=== PATIENT | female | born 1970 | race Caucasian/White ===

== ENCOUNTER 2016-12-20 22:32 | Emergency (ER) | payer OTHER ==
[~2016-12-20] VITALS: Ht 170.2 cm; Wt 100.0 kg
[~2016-12-20 22:32] MED LIST: BENTYL 20MG20 MG/TAB PO; BENTYL20 MG PO; COREG 6.256.25 MG/TA PO; EPA1000 MG PO; FENOFIBRATE160 MG PO; HEALTH CARE AM325 M1 PO; NITROGLYCERIN0.4 MG SL; NITROQUICK0.4 MG SL; RANITIDINE75 MG PO; SERTRALINE50 MG PO; SIMVASTATIN40 MG PO; STOOL SOFTENER1 TAB PO; STOOL SOFTENER100 M1 PO; TOPCARE ASPIRI325 MG PO; XANAX0.25 MG PO; ZOCOR 40MG40 MG PO
[2016-12-20 22:36] VITALS: TEMP 97.9
[2016-12-20 23:14] LABS: BASO % 0.4 % (0.0-2.0); EOS # 0.2 (0.0-0.7); EOS % 2.8 % (0-4.0); GRAN # 3.8 (1.4-6.5); GRAN % 57.1 % (42.2-75.2); HEMOGLOBIN 13.8 g/dl (12.5-16.0); LYMPH # 2.1 (1.2-3.4); LYMPH % 31.7 % (20.0-51.0); MEAN CELL VOLUME 88 fl (80.0-100.0); MEAN CORPUSCULAR HEMOGLOBIN 32 pg (27.0-31.0); MEAN CORPUSCULAR HGB CONC 36 g/dl (33.0-37.0); MEAN PLATELET VOLUME 10.3 fl (7.4-10.4); MONO # 0.5 (0.1-0.6); MONO % 7.9 % (1.7-9.3); PLATELET COUNT 146 K/mm3 (130-400); RED BLOOD COUNT 4.32 M/mm3 (4.10-5.30); WHITE BLOOD COUNT 6.7 K/mm3 (4.8-10.8)
[2016-12-20 23:38] LABS: ERYTHROCYTE SEDIMENTATION RATE 14 mm/hr (0-20)
[2016-12-20 23:42] LABS: ADJUSTED CALCIUM 9.3 mg/dL (8.4-10.2); ALANINE AMINOTRANSFERASE 27 U/L (9-52); ALBUMIN 4.2 gm/dL (3.5-5.0); ALKALINE PHOSPHATASE 63 U/L (50-136); ANION GAP 10 mmol/L (7-16); BILIRUBIN,TOTAL 0.8 mg/dL (0.0-1.0); BLOOD UREA NITROGEN 10 mg/dL (7-17); CALCIUM 9.5 mg/dL (8.4-10.2); CARBON DIOXIDE 26 mmol/L (22-30); CHLORIDE 102 mmol/L (98-107); CREATININE, serum 1.08 mg/dL (0.52-1.25); GLUCOSE 92 mg/dL (74-106); POTASSIUM 4.1 mmol/L (3.4-5.0); SODIUM 138 mmol/L (137-145); TOTAL PROTEIN 7.9 gm/dL (6.4-8.2)
[2016-12-20 23:44] LABS: C-REACTIVE PROTEIN < 0.5 mg/dL (0.0-0.9)
[2016-12-20 23:52] LABS: TROPONIN-I < 0.012 ng/mL (0.000-0.034)
[2016-12-21] MEDS ORDERED: PRINIVIL20 MG PO (00:42)
[2016-12-21 00:57] VITALS: BP 125/65; PULSE 56
== END 2016-12-21 00:59 | disposition home or self-care (01) ==
LOC: COL.ER 22:32
PROVIDERS: Emergency Medicine
DX: I10 Essential (primary) hypertension (principal); R51 Headache; R93.0 Abnormal findings on diagnostic imaging of skull and head, not elsewhere classified; F17.210 Nicotine dependence, cigarettes, uncomplicated; I25.10 Atherosclerotic heart disease of native coronary artery without angina pectoris

== ENCOUNTER 2017-02-04 21:18 | Emergency (ER) | payer OTHER ==
[~2017-02-04] VITALS: Ht 172.7 cm; Wt 100.0 kg
[~2017-02-04 21:18] MED LIST changes: +PRINIVIL20 MG PO
[2017-02-04 21:19] VITALS: TEMP 97.9
[2017-02-04] MEDS ORDERED: COREG 25MG25 MG/TAB PO (21:33)
[2017-02-04] MEDS ORDERED: PLAVIX 75MG TAB75 MG PO (21:33)
[2017-02-04 22:03] LABS: BASO % 0.7 % (0.0-2.0); EOS # 0.1 (0.0-0.7); EOS % 2.3 % (0-4.0); GRAN % 53.3 % (42.2-75.2); HEMATOCRIT 39.7 % (37.0-47.0); HEMOGLOBIN 14.5 g/dl (12.5-16.0); LYMPH # 1.9 (1.2-3.4); LYMPH % 33.7 % (20.0-51.0); MEAN CELL VOLUME 88 fl (80.0-100.0); MEAN CORPUSCULAR HEMOGLOBIN 32 pg (27.0-31.0); MEAN CORPUSCULAR HGB CONC 37 g/dl (33.0-37.0); MEAN PLATELET VOLUME 10.6 fl (7.4-10.4); MONO # 0.6 (0.1-0.6); MONO % 9.8 % (1.7-9.3); PLATELET COUNT 153 K/mm3 (130-400); RED BLOOD COUNT 4.53 M/mm3 (4.10-5.30); WHITE BLOOD COUNT 5.6 K/mm3 (4.8-10.8)
[2017-02-04 22:13] LABS: INR 1.1 (0.8-3.0); PROTHROMBIN TIME 12.7 SECONDS (9.7-12.8)
[2017-02-04 22:15] LABS: PARTIAL THROMBOPLASTIN TIME 28.8 SECONDS (26.0-37.0)
[2017-02-04 22:25] LABS: ADJUSTED CALCIUM 8.9 mg/dL (8.4-10.2); ALANINE AMINOTRANSFERASE 32 U/L (9-52); ALBUMIN 4.6 gm/dL (3.5-5.0); ALKALINE PHOSPHATASE 83 U/L (50-136); ANION GAP 14 mmol/L (7-16); BILIRUBIN,TOTAL 0.9 mg/dL (0.0-1.0); BLOOD UREA NITROGEN 10 mg/dL (7-17); CALCIUM 9.4 mg/dL (8.4-10.2); CARBON DIOXIDE 25 mmol/L (22-30); CHLORIDE 102 mmol/L (98-107); CREATININE, serum 0.88 mg/dL (0.52-1.25); GLUCOSE 96 mg/dL (74-106); POTASSIUM 3.5 mmol/L (3.4-5.0); SODIUM 140 mmol/L (137-145); TOTAL PROTEIN 8.2 gm/dL (6.4-8.2)
[2017-02-04 22:41] LABS: TROPONIN-I < 0.012 ng/mL (0.000-0.034)
[2017-02-05 01:29] VITALS: BP 140/80; PULSE 76
== END 2017-02-05 01:29 | disposition home or self-care (01) ==
LOC: COL.ER 21:18
PROVIDERS: Family Medicine
DX: R07.9 Chest pain, unspecified (principal); I10 Essential (primary) hypertension; E78.5 Hyperlipidemia, unspecified
CPT/HCPCS: J3010

== ENCOUNTER 2017-04-18 08:01 | Day surgery (SDC) | payer OTHER ==
[~2017-04-18] VITALS: Ht 172.7 cm; Wt 89.6 kg
[~2017-04-18 08:01] MED LIST changes: +COREG 25MG25 MG/TAB PO; +PLAVIX 75MG TAB75 MG PO
[2017-04-18] MEDS ORDERED: COREG 6.256.25 MG/TA PO (08:25)
[2017-04-18] MEDS ORDERED: ZESTRIL 20MG TA20 MG PO (08:25)
[2017-04-18 08:28] VITALS: BP 111/67; PULSE 64; TEMP 97.9
[2017-04-18 10:05] VITALS: BP 112/80; PULSE 66; TEMP 97.9
[2017-04-18 10:20] VITALS: BP 113/63; PULSE 59; TEMP 97.8
[2017-04-18 10:35] VITALS: BP 107/67; PULSE 52; TEMP 97.7
[2017-04-18] MEDS ORDERED: NITROSTAT0.4 MG/TAB SL (11:02)
[2017-04-18] MEDS ORDERED: PLAVIX 75MG TAB75 MG PO (11:02)
[2017-04-18] MEDS ORDERED: ZOCOR 40MG40 MG PO (11:02)
== END 2017-04-18 11:07 | disposition home or self-care (01) ==
LOC: SDCO 08:01
DX: K29.50 Unspecified chronic gastritis without bleeding (principal); Z86.010 Personal history of colon polyps; K64.0 First degree hemorrhoids; K44.9 Diaphragmatic hernia without obstruction or gangrene; R63.4 Abnormal weight loss; R07.89 Other chest pain; K31.84 Gastroparesis; R68.81 Early satiety; R11.0 Nausea; K58.9 Irritable bowel syndrome, unspecified; I25.10 Atherosclerotic heart disease of native coronary artery without angina pectoris; Z95.5 Presence of coronary angioplasty implant and graft; K21.9 Gastro-esophageal reflux disease without esophagitis; I25.2 Old myocardial infarction; I51.9 Heart disease, unspecified; E78.00 Pure hypercholesterolemia, unspecified; F17.210 Nicotine dependence, cigarettes, uncomplicated; Z79.02 Long term (current) use of antithrombotics/antiplatelets
CPT/HCPCS: OP; J2250; J2405; J3010; J7030

== ENCOUNTER → 2017-07-19 | Outpatient (CLI) | payer OTHER ==
[~2017-07-19] MED LIST changes: +NITROSTAT0.4 MG/TAB SL; +ZESTRIL 20MG TA20 MG PO
== END ==
LOC: COL.PUL 11:08
DX: Z02.71 Encounter for disability determination (principal); R06.02 Shortness of breath

== ENCOUNTER → 2017-08-09 | Outpatient (CLI) | payer MEDICAID | LOC: COL.RAD 10:09 | DX: R16.0 Hepatomegaly, not elsewhere classified (principal); I70.0 Atherosclerosis of aorta; Z90.710 Acquired absence of both cervix and uterus; Z85.42 Personal history of malignant neoplasm of other parts of uterus | CPT/HCPCS: Q9967 ==

== ENCOUNTER → 2017-09-12 | Outpatient (CLI) | payer MEDICAID ==
[~2017-09-12] VITALS: Ht 170.2 cm; Wt 78.1 kg
[2017-09-12 10:58] VITALS: BP 128/77; PULSE 70
[2017-09-12 12:35] VITALS: BP 126/69; PULSE 96
[2017-09-12 12:38] VITALS: BP 116/61; PULSE 85
== END ==
LOC: COL.CARD 10:45
DX: Z01.810 Encounter for preprocedural cardiovascular examination (principal); I25.10 Atherosclerotic heart disease of native coronary artery without angina pectoris
CPT/HCPCS: A9502; J2785

== ENCOUNTER 2017-10-13 07:22 | Day surgery (SDC) | payer MEDICAID ==
[~2017-10-13] VITALS: Ht 170.3 cm; Wt 75.0 kg
[2017-10-13] VITALS (11 sets, daily range): BP systolic 92–119; BP diastolic 52–78; PULSE 57–71; TEMP 98.1
[2017-10-13] MEDS ORDERED: RANEXA 500MG T500 MG PO (07:39)
[2017-10-13 08:09] LABS: HEMATOCRIT 43.2 % (37.0-47.0); HEMOGLOBIN 15.7 g/dl (12.5-16.0); MEAN CELL VOLUME 91 fl (80.0-100.0); MEAN CORPUSCULAR HEMOGLOBIN 33 pg (27.0-31.0); MEAN CORPUSCULAR HGB CONC 36 g/dl (33.0-37.0); MEAN PLATELET VOLUME 11.3 fl (7.4-10.4); PLATELET COUNT 144 K/mm3 (130-400); RED BLOOD COUNT 4.73 M/mm3 (4.10-5.30); WHITE BLOOD COUNT 6.3 K/mm3 (4.8-10.8)
[2017-10-13 08:36] LABS: INR 1.1 (0.8-3.0); PROTHROMBIN TIME 13.2 SECONDS (9.7-12.8)
[2017-10-13 08:42] LABS: CALCIUM 9.5 mg/dL (8.4-10.2); CREATININE, serum 0.86 mg/dL (0.52-1.25); POTASSIUM 3.8 mmol/L (3.4-5.0)
[2017-10-13] MEDS ORDERED: ASPIRIN 81M81 MG/TA2 PO (12:57)
== END 2017-10-13 16:00 | disposition home or self-care (01) ==
LOC: COL.CAR 07:22
PROVIDERS: Internal Medicine Interventional Cardiology
DX: R07.9 Chest pain, unspecified (principal); E78.5 Hyperlipidemia, unspecified; R94.39 Abnormal result of other cardiovascular function study; J44.9 Chronic obstructive pulmonary disease, unspecified; F17.210 Nicotine dependence, cigarettes, uncomplicated; Z86.79 Personal history of other diseases of the circulatory system; Z82.3 Family history of stroke; Z82.49 Family history of ischemic heart disease and other diseases of the circulatory system; Z83.3 Family history of diabetes mellitus
CPT/HCPCS: Q9967

== ENCOUNTER → 2017-10-17 | Outpatient (CLI) | payer MEDICAID ==
[~2017-10-17] MED LIST changes: +ASPIRIN 81M81 MG/TA2 PO; +RANEXA 500MG T500 MG PO
== END ==
LOC: COL.PUL 10:16
DX: Z02.71 Encounter for disability determination (principal); F17.210 Nicotine dependence, cigarettes, uncomplicated

== ENCOUNTER 2018-05-14 19:54 | Emergency (ER) | payer SELFPAY ==
[~2018-05-14] VITALS: Ht 172.7 cm; Wt 63.6 kg
[2018-05-14 20:04] VITALS: TEMP 97.5
[2018-05-14 20:25] LABS: BASO # 0.1 (0.0-0.2); BASO % 0.7 % (0.0-2.0); EOS # 0.2 (0.0-0.7); EOS % 2.4 % (0-4.0); GRAN # 3.4 (1.4-6.5); GRAN % 49.9 % (42.2-75.2); HEMATOCRIT 42.3 % (37.0-47.0); HEMOGLOBIN 15.4 g/dl (12.5-16.0); LYMPH # 2.7 (1.2-3.4); LYMPH % 40.4 % (20.0-51.0); MEAN CELL VOLUME 88 fl (80.0-100.0); MEAN CORPUSCULAR HEMOGLOBIN 32 pg (27.0-31.0); MEAN CORPUSCULAR HGB CONC 36 g/dl (33.0-37.0); MEAN PLATELET VOLUME 10.2 fl (7.4-10.4); MONO # 0.4 (0.1-0.6); MONO % 6.5 % (1.7-9.3); PLATELET COUNT 176 K/mm3 (130-400); REDCELL DISTRIBUTION WIDTH-CV 12.2 % (11.5-14.5)
[2018-05-14 20:29] LABS: ALANINE AMINOTRANSFERASE 24 U/L (9-52); ALBUMIN 4.3 gm/dL (3.5-5.0); ALKALINE PHOSPHATASE 67 U/L (50-136); ANION GAP 12 mmol/L (7-16); AST,SGOT 27 U/L (15-37); BILIRUBIN,TOTAL 0.6 mg/dL (0.0-1.0); BLOOD UREA NITROGEN 12 mg/dL (7-17); CALCIUM 9.5 mg/dL (8.4-10.2); CARBON DIOXIDE 23 mmol/L (22-30); CHLORIDE 101 mmol/L (98-107); CREATININE, serum 0.83 mg/dL (0.52-1.25); GLUCOSE 100 mg/dL (74-106); POTASSIUM 3.3 mmol/L (3.4-5.0); SODIUM 137 mmol/L (137-145); TOTAL PROTEIN 7.9 gm/dL (6.4-8.2)
[2018-05-14] MEDS ORDERED: FISH OIL1000 MG PO (20:30)
[2018-05-14 20:39] LABS: TROPONIN-I < 0.012 ng/mL (0.000-0.034)
[2018-05-14] MEDS ORDERED: TOPROL XL 25MG25 MG PO (23:07)
[2018-05-14 23:30] VITALS: BP 115/80; PULSE 55
== END 2018-05-14 23:48 | disposition home or self-care (01) ==
LOC: COL.ER 19:54
PROVIDERS: Emergency Medicine
DX: F41.9 Anxiety disorder, unspecified (principal); R07.89 Other chest pain; R06.00 Dyspnea, unspecified; I25.10 Atherosclerotic heart disease of native coronary artery without angina pectoris; I10 Essential (primary) hypertension; F17.210 Nicotine dependence, cigarettes, uncomplicated; Z95.5 Presence of coronary angioplasty implant and graft; Z90.49 Acquired absence of other specified parts of digestive tract; Z98.51 Tubal ligation status
CPT/HCPCS: J7030

== ENCOUNTER 2019-12-31 07:28 | Emergency (ER) | payer SELFPAY ==
[~2019-12-31] VITALS: Ht 172.7 cm; Wt 77.3 kg
[~2019-12-31 07:28] MED LIST changes: +FISH OIL1000 MG PO; +TOPROL XL 25MG25 MG PO
[2019-12-31 07:31] VITALS: TEMP 97.8
[2019-12-31 08:06] LABS: PROTHROMBIN TIME 11.4 SECONDS (9.7-12.8)
[2019-12-31 08:09] LABS: ALANINE AMINOTRANSFERASE 20 U/L (9-52); ALBUMIN 4.6 gm/dL (3.5-5.0); ALKALINE PHOSPHATASE 66 U/L (50-136); ANION GAP 8 mmol/L (7-16); AST,SGOT 30 U/L (15-37); BILIRUBIN,TOTAL 0.6 mg/dL (0.0-1.0); BLOOD UREA NITROGEN 10 mg/dL (7-17); CALCIUM 9.4 mg/dL (8.4-10.2); CARBON DIOXIDE 27 mmol/L (22-30); CHLORIDE 106 mmol/L (98-107); CREATININE, serum 0.81 (0.52-1.25); GLUCOSE 84 mg/dL (74-106); LIPASE 110 U/L (23-300); POTASSIUM 3.9 mmol/L (3.4-5.0); SODIUM 141 mmol/L (137-145); TOTAL PROTEIN 8.4 gm/dL (6.4-8.2)
[2019-12-31 08:25] LABS: BASO % 0.7 % (0.0-2.0); EOS # 0.2 (0.0-0.7); EOS % 3.3 % (0-4.0); GRAN # 3.7 (1.4-6.5); GRAN % 64.6 % (42.2-75.2); HEMATOCRIT 46.2 % (37.0-47.0); HEMOGLOBIN 16.1 g/dl (12.5-16.0); LYMPH # 1.4 (1.2-3.4); LYMPH % 23.8 % (20.0-51.0); MEAN CELL VOLUME 91 fl (80.0-100.0); MEAN CORPUSCULAR HEMOGLOBIN 32 pg (27.0-31.0); MEAN CORPUSCULAR HGB CONC 35 g/dl (33.0-37.0); MEAN PLATELET VOLUME 10.5 fl (7.4-10.4); MONO # 0.4 (0.1-0.6); MONO % 7.2 % (1.7-9.3); PLATELET COUNT 142 K/mm3 (130-400); RED BLOOD COUNT 5.09 M/mm3 (4.10-5.30); REDCELL DISTRIBUTION WIDTH-CV 11.9 % (11.5-14.5); TROPONIN-I < 0.012 ng/mL (0.000-0.035)
[2019-12-31] MEDS ORDERED: ATIVAN 1MG T1 MG/TAB PO (11:38)
[2019-12-31] MEDS ORDERED: ANTIVERT 25MG25 MG PO (11:38)
[2019-12-31 11:45] VITALS: BP 134/78; PULSE 68
== END 2019-12-31 11:42 | disposition home or self-care (01) ==
LOC: COL.ER 07:28
PROVIDERS: Emergency Medicine
DX: R42 Dizziness and giddiness (principal); I10 Essential (primary) hypertension; I25.10 Atherosclerotic heart disease of native coronary artery without angina pectoris; F17.210 Nicotine dependence, cigarettes, uncomplicated; Z90.710 Acquired absence of both cervix and uterus; Z95.9 Presence of cardiac and vascular implant and graft, unspecified; Z79.02 Long term (current) use of antithrombotics/antiplatelets; Z79.82 Long term (current) use of aspirin
CPT/HCPCS: J2060; J7030

== ENCOUNTER → 2020-11-10 | Emergency (ER) | payer SELFPAY ==
[~2020-11-10] VITALS: Ht 170.2 cm; Wt 80.0 kg
[~2020-11-10] MED LIST changes: +ANTIVERT 25MG25 MG PO; +ASPIRIN 32325 MG/TAB PO; +ATIVAN 1MG T1 MG/TAB PO; +ONE-A-DAY ESSE1 EACH PO
[2020-11-10 20:28] VITALS: TEMP 98.1
[2020-11-10 20:53] LABS: BASO % 0.6 % (0.0-2.0); EOS # 0.3 (0.0-0.7); EOS % 3.8 % (0-4.0); GRAN # 4.4 (1.4-6.5); GRAN % 61.3 % (42.2-75.2); HEMATOCRIT 42.5 % (37.0-47.0); HEMOGLOBIN 14.8 g/dl (12.5-16.0); LYMPH # 1.9 (1.2-3.4); LYMPH % 26.1 % (20.0-51.0); MEAN CELL VOLUME 90 fl (80.0-100.0); MEAN CORPUSCULAR HEMOGLOBIN 32 pg (27.0-31.0); MEAN CORPUSCULAR HGB CONC 35 g/dl (33.0-37.0); MEAN PLATELET VOLUME 10.6 fl (7.4-10.4); MONO # 0.6 (0.1-0.6); MONO % 7.9 % (1.7-9.3); PLATELET COUNT 189 K/mm3 (130-400); REDCELL DISTRIBUTION WIDTH-CV 12.1 % (11.5-14.5)
[2020-11-10 20:58] LABS: PROTHROMBIN TIME 11.2 SECONDS (9.7-12.8)
[2020-11-10 21:00] LABS: PARTIAL THROMBOPLASTIN TIME 29.7 SECONDS (26.0-37.0)
[2020-11-10 21:02] LABS: ALANINE AMINOTRANSFERASE 15 U/L (4-34); ALBUMIN 4.3 gm/dL (3.5-5.0); ALKALINE PHOSPHATASE 68 U/L (50-136); ANION GAP 10 mmol/L (7-16); AST,SGOT 27 U/L (15-37); BILIRUBIN,TOTAL 0.4 mg/dL (0.0-1.0); BLOOD UREA NITROGEN 8 mg/dL (7-17); CALCIUM 8.9 mg/dL (8.4-10.2); CARBON DIOXIDE 27 mmol/L (22-30); CHLORIDE 102 mmol/L (98-107); CREATININE, serum 0.93 (0.52-1.25); GLUCOSE 96 mg/dL (74-106); POTASSIUM 3.4 mmol/L (3.4-5.0); SODIUM 139 mmol/L (137-145); TOTAL PROTEIN 7.8 gm/dL (6.4-8.2)
[2020-11-10 21:03] LABS: D-DIMER < 200.00 ng/mLDDu (200-230)
[2020-11-10 21:15] LABS: TROPONIN-I < 0.012 ng/mL (0.000-0.035)
[2020-11-10 21:57] VITALS: BP 103/55; PULSE 63
== END ==
LOC: COL.ER 20:23
PROVIDERS: Emergency Medicine
DX: I10 Essential (primary) hypertension (principal); I25.10 Atherosclerotic heart disease of native coronary artery without angina pectoris; I25.2 Old myocardial infarction; F17.200 Nicotine dependence, unspecified, uncomplicated; Z95.5 Presence of coronary angioplasty implant and graft; Z88.6 Allergy status to analgesic agent; Z20.822 Contact with and (suspected) exposure to COVID-19; Z79.82 Long term (current) use of aspirin
CPT/HCPCS: J3010; J7030

== ENCOUNTER 2024-08-21 21:41 | Emergency (ER) | payer MEDICAID ==
[~2024-08-21] VITALS: Ht 170.2 cm; Wt 103.2 kg
[~2024-08-21 21:41] MED LIST changes: +CYMBALTA 20MG20 MG PO; +INDERAL LA120 MG PO; +TOPAMAX 25MG25 M1 PO; +ZETIA 10MG TAB10 MG PO
[2024-08-21 22:08] VITALS: TEMP 97.4
[2024-08-21] MEDS ORDERED: Meclizine 25 MG TAB PO ONE (23:30)
[2024-08-21] MEDS ORDERED: diphenhydrAMINE 50 MG/ML 1 ML VIAL IV ONE (23:30)
[2024-08-22 00:13] LABS: BASO % 0.5 % (0.0-2.0); EOS # 0.2 K/mm3 (0.0-0.7); EOS % 2.4 % (0.0-4.0); GRAN # 5.6 K/mm3 (1.4-6.5); GRAN % 69.2 % (42.2-75.2); HEMATOCRIT 48.3 % (37.0-47.0); HEMOGLOBIN 17.5 g/dl (12.5-16.0); LYMPH # 1.7 K/mm3 (1.2-3.4); LYMPH % 21.4 % (20.0-51.0); MEAN CELL VOLUME 90 fl (80.0-100.0); MEAN CORPUSCULAR HEMOGLOBIN 33 pg (27-31); MEAN CORPUSCULAR HGB CONC 36 g/dl (33.0-37.0); MEAN PLATELET VOLUME 10.4 fl (7.4-10.4); MONO # 0.5 K/mm3 (0.1-0.6); MONO % 6.3 % (1.7-9.3); PLATELET COUNT 172 K/mm3 (130-400); RED BLOOD COUNT 5.39 M/mm3 (4.10-5.30); REDCELL DISTRIBUTION WIDTH-CV 12.1 % (11.5-14.5)
[2024-08-22 00:24] LABS: ALBUMIN 4.2 g/dL (3.5-5.0); BILIRUBIN,TOTAL 0.5 mg/dL (0.2-1.2); CALCIUM 9.6 mg/dL (8.4-10.2); CREATININE, serum 0.97 mg/dL (0.57-1.11); POTASSIUM 4.3 mEq/L (3.5-4.5); TOTAL PROTEIN 8.6 g/dl (6.2-8.1)
[2024-08-22 00:29] LABS: TROPONIN-I 0.016 ng/mL (0.00-0.033)
[2024-08-22 00:39] LABS: COLLECTION METHOD CLEAN CATCH
[2024-08-22 00:54] LABS: URINE APPEARANCE CLEAR (CLEAR/HAZY); URINE BLOOD NEGATIVE (NEGATIVE); URINE COLOR YELLOW (YELLOW); URINE GLUCOSE NEGATIVE (NEGATIVE); URINE KETONE NEGATIVE (NEGATIVE); URINE NITRATE NEGATIVE (NEGATIVE); URINE PROTEIN(semi-quant) TRACE (NEGATIVE)
[2024-08-22] MEDS ORDERED: ZOFRAN ODT4 MG PO (01:21)
[2024-08-22 01:27] VITALS: BP 137/67; PULSE 58
[2024-08-22] MEDS ORDERED: Home Ondansetron ODT 4 MG #2 ODT/PACK PO ONE (01:30)
== END 2024-08-22 01:27 | disposition home or self-care (01) ==
LOC: COL.ER 21:41
PROVIDERS: Nurse Practitioner Primary Care
DX: R42 Dizziness and giddiness (principal); R11.2 Nausea with vomiting, unspecified
CPT/HCPCS: J0780; J1200